=== PATIENT | female | born 2000 | race Asian ===

== ENCOUNTER → 2020-03-19 10:11 | Outpatient (CLI) | payer OTHER, SELFPAY ==
--- NOTE | 2020-03-19 10:50 | EKG12_ITS ---
Test Reason : CHECK UP Blood Pressure : / mmHG Vent. Rate : 059 BPM Atrial Rate : 059 BPM P-R Int : 176 ms QRS Dur : 078 ms QT Int : 428 ms P-R-T Axes : 073 089 063 degrees QTc Int : 423 ms Sinus bradycardia Otherwise normal ECG Confirmed by LISBETH KC ([id number]), restaurant expeditor LORIE KELLY ([id number]) on 03/24/2020 2:01:57 PM Referred By: GUERA Confirmed By:LISBETH KC
[2020-03-19 11:55] LABS: Anion Gap 6 (5-15); BUN 10 mg/dL (7-18); BUN/Creat Ratio 14.8 RATIO (10-20); Calcium,Total 9.2 mg/dL (8.5-10.1); Chloride 84 mmol/L (98-107); Creatinine, Serum 0.68 mg/dL (0.55-1.02); EST Glomerular Filtration Rate 117 mL/min (>60); Est Glom Filt Rate - Afr Amer 141 mL/min (>60); Glucose 77 mg/dL (74-106); Potassium 2.4 mmol/L (3.5-5.1); Sodium Level 131 mmol/L (136-145)
== END ==
PROVIDERS: Visit Provider Nurse Practitioner Family
DX: F50.00 Anorexia nervosa, unspecified (principal); E87.6 Hypokalemia
CPT/HCPCS: 36415; 80048; 93005

== ENCOUNTER 2020-03-20 16:24 | Observation (INO) | payer OTHER, SELFPAY ==
[2020-03-20 16:25] VITALS: BP 105/69; PULSE 72; RESP 16; TEMP 36.1; O2SAT 100; BMI 16.2
--- NOTE | 2020-03-20 16:51 | EKG12_ITS ---
Test Reason : ABNL LABS Blood Pressure : / mmHG Vent. Rate : 060 BPM Atrial Rate : 060 BPM P-R Int : 162 ms QRS Dur : 076 ms QT Int : 416 ms P-R-T Axes : 068 086 063 degrees QTc Int : 416 ms Normal sinus rhythm Normal ECG Confirmed by LISBETH KC ([id number]), subeditor LORIE KELLY ([id number]) on 03/24/2020 2:09:11 PM Referred By: AHSAN Confirmed By:LISBETH KC
--- NOTE | 2020-03-20 16:53 | ED.DCSUM_ITS ---
- ER Visit Summary Date of Service: 03/20/20 Chief Complaint: Not eating, low potassium History of Present Illness: The patient is a 20 F who has had the above symptoms for 4 weeks. She states that she has not been eating well. She has had loose stools but would not classify it as diarrhea. No vomiting. She has been taking potassium pills at home. She has been losing weight since this all started. She followed up at the [facility] clinic today and saw Dr. Gil Durbin. He was concerned about her losing weight. He states that her potassium was 2.4 and her sodium was 131. He believes that she is failing outpatient therapy and needs a nutrition consult. Physical Examination: Vital signs reviewed. HEENT exam unremarkable. Heart is regular rate and rhythm without murmurs. Lungs are clear to auscultation. Abdomen is soft and nontender. Extremities reveal no edema. Skin exam normal. Neurologic exam normal. Test Results: Hemoglobin is 11.4. Potassium 2.8. Sodium 134. Bicarb 41. Anion gap of 2. Magnesium 2.2. EKG was sinus rhythm with no changes. Emergency Department Course and Treatment: Patient was hydrated with saline and given IV potassium. Due to her weight loss and hypokalemia I feel she should be observed in the hospital and have a nutrition consult. Patient was discussed with the hospitalist for admission Treatment Plan: [] Disposition: Admit Impression: Hypokalemia, weight loss This note was generated with [employer] dictation software. It may contain incorrect words, spelling, and punctuation that were not noted in review of the chart prior to signing ED Disposition - Plan for ED Patient: Referrals: Radha Gutierrez [Primary Care Provider] -
[2020-03-20 17:11] LABS: Absolute Lymphocyte Count 2.04 X10^3/uL (0.83-4.51); Absolute Neutrophil Count 2.3 X10^3/uL (2.0-7.7); Basophil# 0.03 X10^3/uL; Basophil% 0.6 % (0-1); Eosinophil# 0.06 X10^3/uL; Eosinophils% 1.2 % (0-5); Hematocrit 33.1 % (37-47); Hemoglobin 11.4 g/dL (12.0-15.0); Lymphocyte # 2.04 X10^3/ul (4.0); Lymphocyte % 42.1 % (19-41); Mean Corp Hgb Conc 34.4 g/dL (32-36); Mean Corpuscular Hgb 33.1 pg (27.0-32.0); Mean Corpuscular Volume 96.2 fL (81-99); Mean Platelet Vol. 8.4 fl (6.2-12.0); Monocyte# 0.38 X10^3/uL; Monocyte% 7.8 % (0-10); NRBC Flagged by Analyzer 0 % (0-5); Neutrophil # 2.34 X10^3/uL (2.7-7.7); Neutrophil % 48.3 % (47-70); Platelet Count 284 K/mm3 (150-450); RBC Distribution Width CV 11.9 % (11.6-14.6); RBC Distribution Width SD 41.6 fl (35.1-43.9); Red Blood Count 3.44 M/mm3 (4.2-5.4); White Blood Count 4.9 K/mm3 (4.4-11.0)
[2020-03-20] MEDS: 0.9% Normal Saline 1,000 ML 150 ML IV (17:25)
[2020-03-20 17:30] LABS: AST(SGOT) 18 U/L (15-37); Alanine Aminotransfer ALT/SGPT 24 U/L (13-56); Albumin, Serum 3.8 g/dL (3.2-5.0); Alkaline Phosphatase 83 U/L (45-117); Anion Gap 2 (5-15); BUN 10 mg/dL (7-18); BUN/Creat Ratio 16.8 RATIO (10-20); Bilirubin, Direct 0.14 mg/dL (0.00-0.30); Calcium,Total 8.8 mg/dL (8.5-10.1); Chloride 91 mmol/L (98-107); EST Glomerular Filtration Rate 135 mL/min (>60); Est Glom Filt Rate - Afr Amer 164 mL/min (>60); Estimated Creatinine Clearance 82.65 ml/min; Globulin 3.8 g/dL (2.2-4.2); Glucose 95 mg/dL (74-106); Magnesium 2.2 mg/dL (1.6-2.6); Potassium 2.8 mmol/L (3.5-5.1); Protein, Total 7.6 g/dL (6.4-8.2); Sodium Level 134 mmol/L (136-145)
[2020-03-20] MEDS: Potassium Chloride 10mEq/100mL 10 MEQ/100 ML IV.SOLN. 100 MEQ IV BOLUS ×2 (17:58→21:57)
[2020-03-20 18:46] VITALS: BP 103/70; PULSE 78; RESP 18; TEMP 36.8; O2SAT 100
--- NOTE | 2020-03-20 20:12 | PCM.HP.STD ---
Problem List (1) Anorexia nervosa Status: Acute (2) Severe protein calorie malnutrition Status: Acute (3) Anxiety and depression Status: Acute History of Present Illness Date of Admission: 03/20/20 Chief Complaint: Hypokalemia and severe loss of weight The patient is a 20 year old F with history of anxiety and depression, suicidal attempt about 4 years ago was sent to ED by PCP for evaluation of hyponatremia and severe loss of weight. Patient current BMI 16.3 and was 14.9 back in November 2019, mainly her height was calculated 5.2 feet. She said she was not able to get good food supply in November 2019 because of COVID-19 while she was living in dormitory. She claims good appetite but has alternating diarrhea and constipation but mostly diarrhea, loose bowel movement. She denies being on laxatives, purgatives or stool softener. She has realistic body image of being low BMI. [] She denies history of vomiting. Her potassium has been low, K2.4 on 03/19 and 3.4 on 03/14 2020.. In PCP office her weight was found 80 pound, blood pressure 116/89. EKG shows normal sinus rhythm at 60 bpm. Past Medical History Allergies No Known Allergies Allergy (Verified 03/20/20 16:24) Home Medications: Ambulatory Orders Medication Instructions Recorded Multivitamins,Therapeutic 1 tab PO DAILY 03/20/20 [Multivitamin] Potassium Chloride 20 meq PO BID 03/20/20 Smoking Status: Never smoker Tobacco Use: Non-smoker Alcohol: None Drugs: None - *Family History Paternal History Items: No pertinent history Review of Systems Constitutional: Denies: Chills, Fever, Weight Change HEENT: Denies: Head Aches, Sinus Congestion, Sinus Drainage Cardiovascular: Denies: Chest Pain, Palpitations Respiratory: Reports: Shortness of breath upon exertion. Denies: Cough, Hemoptysis, Shortness of breath at rest, Sputum production Gastrointestinal: Reports: Diarrhea. Denies: Abdominal Pain, Nausea, Vomiting Genitourinary: Denies: Dysuria, Frequency, Hematuria Musculoskeletal: Denies: Joint Pain, Joint Tenderness Skin: Denies: Rash, Wounds Neurological: Denies: Numbness, Tingling, Focal weakness Psychiatric: Denies: Anxiety, Depression, Homicidal Ideations, Suicidal Ideations Hematologic/ Lymphatic: Denies: Easy Bruising, Easy Bleeding VTE Information - Inpt Only VTE Present on Admission: No VTE Mechan Device Prophylaxis: None VTE Pharm Prophylaxis ordered?: No Reason prophylaxis not ordered:: Procedure Not Indicated Patient Problems: Active and Suspected Problems Anorexia nervosa (Acute) Severe protein calorie malnutrition (Acute) Anxiety and depression (Acute) - Physical Exam Vitals/I&O's: Vital Signs Temp Pulse Resp BP Pulse Ox 98.2 F 78 18 103/70 100 03/20/20 18:46 03/20/20 18:46 03/20/20 18:46 03/20/20 18:46 03/20/20 18:46 Oxygen Delivery Method Room Air Weight: 77 lb 13.171 oz Body Mass Index (BMI) 16.2 General: Alert, Oriented x3, Cooperative HEENT: Atraumatic, PERRLA, EOMI, Normocephalic Neck: Supple, No JVD, Negative Carotid Bruits Lungs: Clear to auscultation, No rhonchi, No wheeze, No rales, Diminished - Air entry diminished bilaterally bilateral lung bases Cardiovascular: Regular rate, Regular Rhythm, No murmurs Abdomen: Bowel Sounds Present, Soft, Non Tender, Non-Distended Extremities: No edema, Capillary Refill Less than 3 Seconds Skin: No rashes, No breakdown Musculoskeletal: No Tenderness to Palpation of Joints or Extremities, Muscle Wasting Neurological: Cranial nerves II-XII grossly intact, Deep Tendon Reflexes 2+/4 and Symmetrical, Neuro grossly intact Psych/Mental Status: Anxious, Flat Affect Laboratory Results 03/20/20 16:59: WBC 4.9, RBC 3.44 L, Hgb 11.4 L, Hct 33.1 L, MCV 96.2, MCH 33.1 H, MCHC 34.4, RDW Std Deviation 41.6, RDW Coeff of Tia 11.9, Plt Count 284, MPV 8.4, Immature Gran % (Auto) 0.000, Neut % (Auto) 48.3, Lymph % (Auto) 42.1 H, [place] % (Auto) 7.8, Eos % (Auto) 1.2, Baso % (Auto) 0.6, Absolute Neuts (auto) 2.3, Absolute Lymphs (auto) 2.04, Nucleated RBC % 0 03/20/20 16:59: Sodium 134 L, Potassium 2.8 L, Chloride 91 L, Carbon Dioxide 41.0 H, Anion Gap 2 L, BUN 10, Creatinine 0.60, Estim Creat Clear Calc 82.65, Est GFR (MDRD) Af Amer 164, Est GFR (MDRD) Non-Af 135, BUN/Creatinine Ratio 16.8, Glucose 95, Calcium 8.8, Magnesium 2.2, Total Bilirubin 0.30, Direct Bilirubin 0.14, AST 18, ALT 24, Alkaline Phosphatase 83, Total Protein 7.6, Albumin 3.8, Globulin 3.8 Current Medications Sodium Chloride () 1,000 mls @ 150 mls/hr IV .[id number] [facility] Last Admin: 03/20/20 17:25 Dose: 150 mls/hr Documented by: Potassium Chloride () 10 meq in 100 mls @ 100 mls/hr IV BOLUS Q1H [facility] Stop: 03/20/20 21:44 Last Admin: 03/20/20 17:58 Dose: 100 mls/hr Documented by: Assessment/Plan All Active Problems Anorexia nervosa (Acute) Severe protein calorie malnutrition (Acute) Anxiety and depression (Acute) The patient is a 20 year old F with history of anxiety and depression, suicidal attempt about 4 years ago was sent to ED by PCP for evaluation of hyponatremia and severe loss of weight. 1. Acute on chronic loss of weight, most likely anorexia nervosa: Patient also has irregular menstrual cycle, secondary amenorrhea, LMP in November 2019. Current BMI 16.3 kg/m?. Job Development Specialist consult. IV fluid normal saline 75/h. Prealbumin, serum phosphorus ordered. Liver chemistry within normal limit. Magnesium 2.2. 2. 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 Serum phosphorus tomorrow a.m. KCl 40 mEq IV replacement over 4 hours. 3. Anxiety, moderate depression and history of suicidal attempt about 4 years ago. Currently she denies suicidal ideation or attempt. Started on Nexium 20 mg daily. Due to prophylaxis: Low risk, early ambulation encouraged. Inpatient E&M: 65535 Init Hosp L3
[2020-03-20 20:40] VITALS: BP 95/66; PULSE 63; RESP 16; TEMP 36.8; O2SAT 100
[2020-03-20 20:45] VITALS: BMI 17.6
[2020-03-20] MEDS: 0.9% Normal Saline 1,000 ML 75 ML IV (20:48)
[2020-03-20] MEDS: Potassium Chloride 10mEq/100mL 10 MEQ/100 ML IV.SOLN. 60 MEQ IV BOLUS (23:22)
[2020-03-21] MEDS: Potassium Chloride 10mEq/100mL 10 MEQ/100 ML IV.SOLN. 80 MEQ IV BOLUS (00:15)
[2020-03-21 03:25] VITALS: BP 91/54; PULSE 57; RESP 16; TEMP 36.8; O2SAT 100
[2020-03-21 07:08] LABS: International Normalized Ratio 1.2; Prothrombin Time (Protime)PT. 14.2 SECONDS (11.7-14.9)
[2020-03-21 07:38] VITALS: O2SAT 97
[2020-03-21 08:00] LABS: Anion Gap 3 (5-15); BUN 4 mg/dL (7-18); BUN/Creat Ratio 7.2 RATIO (10-20); Calcium,Total 8.4 mg/dL (8.5-10.1); Chloride 105 mmol/L (98-107); Creatinine, Serum 0.55 mg/dL (0.55-1.02); EST Glomerular Filtration Rate 147 mL/min (>60); Est Glom Filt Rate - Afr Amer 178 mL/min (>60); Estimated Creatinine Clearance 97.06 ml/min; Glucose 79 mg/dL (74-106); Phosphorus 3.1 mg/dL (2.5-4.9); Potassium 3.7 mmol/L (3.5-5.1); Prealbumin 21.5 mg/dL (20.0-40.0); Sodium Level 139 mmol/L (136-145); Thyroid Stim Hormone (TSH) 1.39 uIU/mL (0.358-3.74)
[2020-03-21 09:25] VITALS: BP 96/64; PULSE 90; RESP 16; TEMP 36.7; O2SAT 100
[2020-03-21] MEDS: Paroxetine 20 MG Tablet PO (09:48)
[2020-03-21] MEDS: Multivitamins,Therapeutic Tablet 1 TABLET PO (09:49)
[2020-03-21 11:24] LABS: Vitamin B12 562 pg/mL (211-911)
--- NOTE | 2020-03-21 11:36 | PN_ITS ---
Patient Problems: Active and Suspected Problems Anorexia nervosa (Acute) Severe protein calorie malnutrition (Acute) Anxiety and depression (Acute) Subjective: Patient seen and examined. She was admitted for hypokalemia and severe loss of weight. She has no complaints this morning. She was not happy with her breakfast she was given that she says she was given scrambled eggs instead of a vegan substitute as she is on vegan. She denies any nausea vomiting or diarrhea. Review of symptoms otherwise negative. Potassium is up to 3.7 today. Vitals otherwise stable. Vitals/I&O's: Vital Signs Temp Pulse Resp BP Pulse Ox 98.1 F 90 16 96/64 100 03/21/20 09:25 03/21/20 09:25 03/21/20 09:25 03/21/20 09:25 03/21/20 09:25 Oxygen Delivery Method Room Air Weight: 83 lb 12.41 oz Body Mass Index (BMI) 17.6 Intake and Output for Last 24 Hours 03/19/20 03/20/20 03/21/20 23:59 23:59 23:59 Intake Total 776.25 / 776.25 470 / 470 Balance 776.25 / 776.25 470 / 470 General: Alert, Oriented x3, Cooperative, - HEENT: Atraumatic, PERRLA, EOMI, Normocephalic Oral: Dry Mucosa Neck: Supple, No JVD, Negative Carotid Bruits Lungs: Clear to auscultation, Normal air movement, No rhonchi, No wheeze, No rales Cardiovascular: Regular rate, Regular Rhythm, Normal S1, Normal S2, No murmurs Abdomen: Bowel Sounds Present, Soft, Non Tender, Non-Distended, No Hepato- splenomegaly Extremities: No clubbing, No cyanosis, No edema, Capillary Refill Less than 3 Seconds Skin: No rashes, No breakdown Musculoskeletal: No Tenderness to Palpation of Joints or Extremities Lymphatic: No Cervical, Supraclavicular, or Inguinal Adenopathy Neurological: Cranial nerves II-XII grossly intact, Neuro grossly intact, Motor Exam 5/5 strength throughout Psych/Mental Status: Normal Affect, Appropriate, Alert and oriented to time, place, person, mood and affect Laboratory Results 03/20/20 16:59: WBC 4.9, RBC 3.44 L, Hgb 11.4 L, Hct 33.1 L, MCV 96.2, MCH 33.1 H, MCHC 34.4, RDW Std Deviation 41.6, RDW Coeff of Tia 11.9, Plt Count 284, MPV 8.4, Immature Gran % (Auto) 0.000, Neut % (Auto) 48.3, Lymph % (Auto) 42.1 H, [place] % (Auto) 7.8, Eos % (Auto) 1.2, Baso % (Auto) 0.6, Absolute Neuts (auto) 2.3, Absolute Lymphs (auto) 2.04, Nucleated RBC % 0 03/20/20 16:59: Sodium 134 L, Potassium 2.8 L, Chloride 91 L, Carbon Dioxide 41.0 H, Anion Gap 2 L, BUN 10, Creatinine 0.60, Estim Creat Clear Calc 82.65, Est GFR (MDRD) Af Amer 164, Est GFR (MDRD) Non-Af 135, BUN/Creatinine Ratio 16.8, Glucose 95, Calcium 8.8, Magnesium 2.2, Total Bilirubin 0.30, Direct Bilirubin 0.14, AST 18, ALT 24, Alkaline Phosphatase 83, Total Protein 7.6, Albumin 3.8, Globulin 3.8 03/21/20 06:25: PT 14.2, INR 1.2 03/21/20 06:25: Sodium 139, Potassium 3.7, Chloride 105, Carbon Dioxide 31.0, Anion Gap 3 L, BUN 4 L, Creatinine 0.55, Estim Creat Clear Calc 97.06, Est GFR (MDRD) Af Amer 178, Est GFR (MDRD) Non-Af 147, BUN/Creatinine Ratio 7.2 L, Glucose 79, Calcium 8.4 L, Phosphorus 3.1, Prealbumin 21.5, Folate 37.80, TSH 1.39 03/21/20 06:25: Vitamin B12 562 Current Medications [facility] Admin: 03/21/20 09:49 Dose: 1 tablet Documented by: Paroxetine HCl (Paxil) 20 mg PO DAILY [facility] Last Admin: 03/21/20 09:48 Dose: 20 mg Documented by: Potassium Chloride (K-Dur) 40 meq PO BID [facility] Last Admin: 03/21/20 09:48 Dose: 40 meq Documented by: Sodium Chloride () 10 - 40 ml IV UD PRN PRN Reason: SALINE FLUSH STROKE Vital Signs/Narrative: Vital Signs Temp Pulse Resp BP Pulse Ox 03/21/20 09:25 98.1 F 90 16 96/64 100 03/21/20 07:38 97 Medical Necessity - Tobacco Use Smoking Status: Never smoker Tobacco Use: Secondhand Assessment/Plan All Active Problems Anorexia nervosa (Acute) Severe protein calorie malnutrition (Acute) Anxiety and depression (Acute) 1. Hypokalemia * Likely due to poor intake. Patient states since the choledochotomy started, she had not been eating well as she did not have the financial resources and her college [employer] was also not providing adequate vegan meals. So she said she had been starving for several months. * Potassium was 2.8 on admission and is now 3.7. * Continue oral potassium replacement. * 2. Acute on chronic weight loss likely due to anorexia nervosa * Patient also has irregular menstrual cycles. Patient does seem to have some depression and anxiety which she admits to and states that she is following counselors at the [facility]. She admits to a lot of stress due to her being homesick as she has not been home to [place] in 4 years, and also because she has been worrying about her family back home during this pandemic. * Nutrition consulted. Patient to continue following up with her counselors on outpatient basis. * 3. Anxiety and depression: Had a suicidal attempt about 4 years ago. To follow-up with counselors at the [facility] or outpatient basis. DVT prophylaxis: low risk. Encouraged to ambulate. OBSV E&M: [id number] Subsequent observation care L2
--- NOTE | 2020-03-21 12:06 | PCM.NTREPORT ---
Nutrition Therapy Report - History Nutrition Services has been consulted to:: Manage nutrient details of diet order, Conduct nutrition education, Conduct nutrition counseling Current diet / nutrition support order:: regular; ensure enlive 120mL 4x/day - Anthropometric Measurements Height:: 4 ft 10.5 in Weight:: 38 kg Body Mass Index (BMI):: 17.2 - Relevant Labs Relevant Labs:: RBC 3.44 M/mm3 (4.2-5.4) L 03/20/20 16:59 Hgb 11.4 g/dL (12.0-15.0) L 03/20/20 16:59 Hct 33.1 % (37-47) L 03/20/20 16:59 MCH 33.1 pg (27.0-32.0) H 03/20/20 16:59 Lymph % (Auto) 42.1 % (19-41) H 03/20/20 16:59 Sodium 134 mmol/L (136-145) L 03/20/20 16:59 Potassium 2.8 mmol/L (3.5-5.1) L 03/20/20 16:59 Chloride 91 mmol/L (98-107) L 03/20/20 16:59 Carbon Dioxide 41.0 mmol/L (21.0-32.0) H 03/20/20 16:59 Anion Gap 3 (5-15) L 03/21/20 06:25 BUN 4 mg/dL (7-18) L 03/21/20 06:25 BUN/Creatinine Ratio 7.2 RATIO (10-20) L 03/21/20 06:25 Calcium 8.4 mg/dL (8.5-10.1) L 03/21/20 06:25 - Assessment Food / Nutrition-Related History:: Consult for suspected anorexia nervousa. Pt is a biochemistry student at the [employer]; family lives in [place] but pt has been living w/ a host family in the area. States [place] has been [place] the [place]. Pt reports chronic alternating diarrhea and constipation. She states she saw a doctor at the [facility] clinic who prescribed her a low FODMAP diet a few weeks ago to assist w/ her GI symptoms. Pt says GI symptoms have improved w/ diet and states she is now sleeping better which she states is helping her symptoms as well. Pt states she was also having issues w/ securing appropriate foods d/t COVID-19. Pt states she struggles w/ finding vegan foods at college. Unclear wt hx, but it is reported that pt weighed less a few months ago. Pt states she ate oatmeal at breakfast. Diet recall w/ pt suggests she consumes very little calories/protien- will eat raw/steamed carrots, broccoli, celery, cucumber, salad, tomato; corn, sweet potoates, quinoa, unsalted almonds/peanuts; fresh pears, berries, melon; black beans, chickpeas, hummus, vinegar, nutritional yeast, unsweet almond/soy milk. NFPA indicates severe muscle wasting/fat loss in both upper and lower extremities; temporal region; clavicles, scapula. During assessment, pt does not make eye contact w/ RDN and answers questions appropriately but with little detail provided. - Nutrition Diagnosis Problem / Etiology / Signs & Symptoms (PES):: Severe malnutrition in context of social/behavioral/environmental circumstances related to inadequate protein-energy intake and lack of nutrient dense food consumption while following a low-FODMAP, vegan diet during a global pandemic w/ limited access to recommended foods as evidenced by consumption of less than 50% of estimated energy needs per diet history over past 1 month, severe subcutaneous fat loss in triceps and ribs and muscle loss to clavicle, scapula, thighs, calves. Evidence of Malnutrition Exists:: Yes Severe PCM:: Social & Environmental circumstances - Nutrition Intervention Nutrition Prescription:: [id number] calories/day, 45-55 g protein/day - Food / Nutrient Delivery Interventions Summary of nutrition intervention:: Admitted w/ hypokalemia, WNL after replacement. High risk for refeeding syndrome given BMI <18.5, estimated energy intake <50% for greater than 1 month, and evidence of severe muscle wasting/fat loss. Pt frustrated w/ breakfast this AM. RDN provided pt w/ fresh melon and raw vegetable plate for snack at 1000. RDN spoke w/ executive chef assistant in kitchen to assist w/ providing an appropriate lunch for pt. Suspect some degree of disordered eating given mental health history, obvious obsession w/ food types and quantities. Pt would benefit from further evaluation by professional w/ specialization in disordered eating behaviors. Spoke w/ pt about low FODMAP diet, as it is not intended to be followed w/o physician/dietitian supervision. Explained she will need to track her GI symptoms and reintroduce foods as tolerated. Recommended pt to follow-up w/ outpatient RDN to assist w/ diet. Pt appeared interested. Given pt's finanical situation, RDN will consult w/ sexual assault social worker to assist w/ discharge planning. Nutrition support ordered as / adjusted to:: Continue regular diet- will add vegan/low FODMAP to diet order. [facility] does not have a standardized low FODMAP diet, RDN will work w/ kitchen staff to provide adequate nutrition at meals. Will discontinue oral nutrition supplements. Continue daily wts. Strongly recommend outpatient referral to [facility] Nutrition Services for ongoing medical nutrition therapy. Recommend follow-up w/ mental health professional. Nutrition education provided?: Yes - MNT Monitoring Further MNT monitoring and evaluation required?: Yes MNT Follow-up in:: 1-2 days
[2020-03-21 12:09] VITALS: BMI 17.2
[2020-03-21 13:54] VITALS: BP 90/61; PULSE 64; RESP 16; TEMP 36.9; O2SAT 99
--- NOTE | 2020-03-21 16:33 | CASEMGMT ---
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 Over the summer she lives with a host family. Pt will be moving back into dorms in a few days. 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 Family Dynamics: Pt has not been home to [place] in 4 years. Pt was to return home for a visit this summer which was cancelled due to Covid ADLs: Independent Subtance Abuse: Pt denies any alcohol or drug use Mental Health Hx and Current status: Diagnosis: Depression, Anxiety, Anorexia Stressors: Pandemic, food preferences, financial limitations SI: pt has had in the past but pt denies any thoughts of harming herself at this time. Pt states that she was planning on returning to [place] to visit her family over the summer and had used her financial resources to purchase plane ticket. Trip was cancelled due to [place] virus and pt received vouchers for ticket and not jeffrey back. Pt stayed at [employer] during virus and due to her dietary restrictions she did not find any food that she would/could eat available at the student dining center and she did not have resources to purchase other options. Pt also stating that she has depression and anxiety and the she had difficulty during the pandemic. Interventions: Pt was open to talking with SW. Expresses some thoughts and became more willing to talk as conversation progressed. Appropriate affect and pt made eye contact with SW. Pt stating that she has started seeing a counselor weekly at [facility] recently and that she plans to continue seeing counselor for regular appointments and she is taking anti depressant. Pt stating that this has helped her to sort some things out and to process things going on with her. Pt does state that she has transportation to appointments. SW inquired about eating issues. Pt stating that conversation with supervisor assembly department was very helpful and she has contact information to followup with questions. Pt did state she does not believe she will be able to come in for regular appointments due to her course load and time restraints (pt did confirm she has counseling appts scheduled in with class schedule so she can go). Pt admitting the need to gain weight and wants to gain it in an appropriate way. Pt plans to shop at [employer] for health foods and pt states she now has finances and transportation to obtain the food she needs. Pt denies any suicidal ideation. Plan: continue with Counselor at [facility]. Followup phone conversation/emails with [facility] supervisor assembly department. Pt denies and financial, transportation needs. LIZETT Fong
[2020-03-21 21:02] VITALS: BP 96/68; PULSE 67; RESP 18; TEMP 36.9; O2SAT 99
[2020-03-22 03:15] VITALS: BP 101/61; PULSE 67; RESP 16; TEMP 37.2; O2SAT 100
[2020-03-22 06:24] LABS: Anion Gap 3 (5-15); BUN 6 mg/dL (7-18); Calcium,Total 8.2 mg/dL (8.5-10.1); Chloride 104 mmol/L (98-107); Creatinine, Serum 0.55 mg/dL (0.55-1.02); EST Glomerular Filtration Rate 149 mL/min (>60); Est Glom Filt Rate - Afr Amer 180 mL/min (>60); Estimated Creatinine Clearance 97.06 ml/min; Glucose 79 mg/dL (74-106); Potassium 3.5 mmol/L (3.5-5.1); Sodium Level 136 mmol/L (136-145)
[2020-03-22 07:03] VITALS: O2SAT 95
[2020-03-22] MEDS: Multivitamins,Therapeutic Tablet 1 TABLET PO (08:38)
[2020-03-22] MEDS: Paroxetine 20 MG Tablet PO (08:38)
[2020-03-22 08:41] VITALS: BP 100/69; PULSE 78; RESP 14; TEMP 36.6; O2SAT 100
--- NOTE | 2020-03-22 09:06 | DCINST_ITS ---
- Discharge Diagnoses Current Active Problems: Current Active and Chronic Problems Anorexia nervosa (Acute) Severe protein calorie malnutrition (Acute) Anxiety and depression (Acute) You will use the following diet at home:: No restrictions Your food should be the consistency of: Regular Your liquids should be the consistency of: Regular/Thin Discharge Activity: Return to Normal Activity Weight Bearing Status: Weight bearing as tolerated Call your doctor if you observe: Numbness or Tingling, Dizziness, Fainting spells Instructions: ED Anorexia Nervosa, Hypokalemia, Eating a High Potassium Diet, ED Potassium-Rich Foods Allergies/Adverse Reactions: Allergies No Known Allergies Allergy (Verified 03/20/20 16:24) Medications to take at Discharge Multivitamins,Therapeutic [Multivitamin] 1 tab PO DAILY 03/20/20 Potassium Chloride [K-Dur] 40 meq PO DAILY #15 tab 03/22/20 The following prescriptions were given: Potassium Chloride [K-Dur] 40 meq PO DAILY #15 tab Transmission Status: Pending to [facility] Primary Care Physician: Radha Gutierrez [Primary Care Provider] - Please follow up with your Primary Care Physician in: 1-2 weeks Test Results: Test results from this visit will be discussed in further detail at your follow- up appointment, if applicable. Proposed Discharge Date: 03/22/20
--- NOTE | 2020-03-22 09:09 | PCM.DC.SUM ---
Discharge Date and Diagnosis Date of Admission: 03/20/20 Date of Discharge: 03/22/20 - Primary Discharge Diagnosis Acute Problems: Active Problems Anorexia nervosa (Acute) Severe protein calorie malnutrition (Acute) Anxiety and depression (Acute) Hospital Course and Treatment Operations: None Procedures: None Summary of Care Provided: The patient is a 20 year old F with a past medical history of anxiety and depression as well as a previous suicidal attempt about 4 years ago. She was admitted through the ED on 03/20/2020 after she was sent to the ED by her PCP for evaluation of severe weight loss and hypokalemia. Patient states unable to get food properly during the COVID pandemic because she did not have any money and also because she was vegan and the food at her college dining halls were not vegan appropriate. She says she has been living with a host family of late and her diet has improved. Patient also admitted to anxiety and depression and says she had been seeing counselors at the [facility] for this. BMI was 16.3. On admission, potassium was found to be low at 2.8. She was admitted and managed for hypokalemia and chronic severe protein calorie malnutrition. There was a concern that patient was also anorexic as she had irregular menstrual periods due to her weakness though she did have a realistic body image and new she was underweight. Potassium was replaced aggressively and was 3.5 on day of discharge. She remained stable and was discharged home on 03/22/2020. She was discharged with a prescription for p.o. potassium 40 mg daily x15 tablets. She is follow-up with her primary care doctor within a week for her BMP to be monitored and she was also given advice on eating a high potassium diet. She is to follow up with her counselors at the [facility]. Patient seen and examined prior to discharge. She felt well and had no complaints and was eager to be discharged. Review of systems otherwise negative. Labs and vitals reviewed. Home medication reviewed and reconciled. O/E: Vital Signs Temp Pulse Resp BP Pulse Ox 97.9 F 78 14 100/69 100 03/22/20 08:41 03/22/20 08:41 03/22/20 08:41 03/22/20 08:41 03/22/20 08:41 [] General: Alert, Oriented x3, Cooperative, HEENT: Atraumatic, PERRLA, EOMI, Normocephalic Oral: Dry Mucosa Neck: Supple, No JVD, Negative Carotid Bruits Lungs: Clear to auscultation, Normal air movement, No rhonchi, No wheeze, No rales Cardiovascular: Regular rate, Regular Rhythm, Normal S1, Normal S2, No murmurs Abdomen: Bowel Sounds Present, Soft, Non Tender, Non-Distended, No Hepato-splenomegaly Extremities: No clubbing, No cyanosis, No edema, Capillary Refill Less than 3 Seconds Skin: No rashes, No breakdown Musculoskeletal: No Tenderness to Palpation of Joints or Extremities Lymphatic: No Cervical, Supraclavicular, or Inguinal Adenopathy Neurological: Cranial nerves II-XII grossly intact, Neuro grossly intact, Motor Exam 5/5 strength throughout Psych/Mental Status: Normal Affect, Appropriate, Alert and oriented to time, place, person, mood and affect Plan is to discharge home today - Physical Exam Vitals/I&O's: Vital Signs Temp Pulse Resp BP Pulse Ox 97.9 F 78 14 100/69 100 03/22/20 08:41 03/22/20 08:41 03/22/20 08:41 03/22/20 08:41 03/22/20 08:41 Oxygen Delivery Method Room Air Weight: 82 lb 10.774 oz Body Mass Index (BMI) 17.2 Intake and Output for Last 24 Hours 03/20/20 03/21/20 03/22/20 23:59 23:59 23:59 Intake Total 776.25 / 776.25 3873.75 / 4323.75 850 / 850 Balance 776.25 / 776.25 3873.75 / 4323.75 850 / 850 Laboratory Results 03/21/20 06:25: Vitamin B12 562 03/22/20 05:30: Sodium 136, Potassium 3.5, Chloride 104, Carbon Dioxide 29.0, Anion Gap 3 L, BUN 6 L, Creatinine 0.55, Estim Creat Clear Calc 97.06, Est GFR (MDRD) Af Amer 180, Est GFR (MDRD) Non-Af 149, BUN/Creatinine Ratio 11.0, Glucose 79, Calcium 8.2 L Current Medications [facility] Admin: 03/22/20 08:38 Dose: 1 tablet Documented by: Paroxetine HCl (Paxil) 20 mg PO DAILY [facility] Last Admin: 03/22/20 08:38 Dose: 20 mg Documented by: Potassium Chloride (K-Dur) 40 meq PO BID [facility] Last Admin: 03/22/20 08:38 Dose: 40 meq Documented by: Sodium Chloride () 10 - 40 ml IV UD PRN PRN Reason: SALINE FLUSH Discharge Diet: No Restrictions Discharge Activity: Return to Normal Activity Weight Bearing Status: Weight bearing as tolerated Call your doctor if you observe: Numbness or Tingling, Dizziness, Fainting spells Home Medications: Medications to take at Discharge Multivitamins,Therapeutic [Multivitamin] 1 tab PO DAILY 03/20/20 Potassium Chloride [K-Dur] 40 meq PO DAILY #15 tab 03/22/20 Following Prescriptions Were Given to Patient: Potassium Chloride [K-Dur] 40 meq PO DAILY #15 tab Transmission Status: Received by [facility] Primary Care Physician: Radha Gutierrez [Primary Care Provider] - Please follow up with your Primary Care Physician in: 1-2 weeks Patient Instructions: Hypokalemia, Eating a High Potassium Diet, ED Anorexia Nervosa, ED Potassium-Rich Foods Disposition: Home Minutes spent on discharge:: 35 Patient Condition:: Stable Medical Necessity - Tobacco Use Smoking Status: Never smoker Tobacco Use: Secondhand Meaningful Use Info Meaningful Use Diagnoses (Choose all that apply): None applicable OBSV E&M: 91768 Observation care discharge
== END 2020-03-22 10:57 | disposition home or self-care (01) ==
LOC: ED 17:26 → MS3 20:36
PROVIDERS: Admitting Provider Internal Medicine; Emergency Provider Emergency Medicine; Visit Provider Student in an Organized Health Care Education/Training Program
DX: F50.00 Anorexia nervosa, unspecified (principal); E43 Unspecified severe protein-calorie malnutrition; F32.9 Major depressive disorder, single episode, unspecified; F41.9 Anxiety disorder, unspecified; E87.6 Hypokalemia; Z68.1 Body mass index [BMI] 19.9 or less, adult; E87.1 Hypo-osmolality and hyponatremia; N91.1 Secondary amenorrhea
CPT/HCPCS: 36415; 80048; 80076; 82607; 82746; 83735; 84100; 84134; 84443; 85025; 85610; 93005; 96360; 96361; 97802; 99218; 99285; J7030; A4216; G0378

== ENCOUNTER → 2020-03-28 14:31 | Outpatient (CLI) | payer OTHER, SELFPAY ==
[2020-03-21 12:09] VITALS: BMI 17.2
[2020-03-28 16:35] LABS: Anion Gap 3 (5-15); BUN 8 mg/dL (7-18); BUN/Creat Ratio 12.9 RATIO (10-20); Calcium,Total 8.8 mg/dL (8.5-10.1); Chloride 103 mmol/L (98-107); Creatinine, Serum 0.62 mg/dL (0.55-1.02); EST Glomerular Filtration Rate 129 mL/min (>60); Est Glom Filt Rate - Afr Amer 157 mL/min (>60); Glucose 59 mg/dL (74-106); Potassium 3.1 mmol/L (3.5-5.1); Sodium Level 141 mmol/L (136-145)
== END ==
PROVIDERS: Referring Provider Nurse Practitioner Family; Visit Provider Nurse Practitioner Family
DX: E87.6 Hypokalemia (principal)
CPT/HCPCS: 36415; 80048